=== PATIENT | male | born 1980 | race Caucasian/White ===

== ENCOUNTER 2017-01-15 15:32 | Emergency (ER) ==
[2017-01-15 15:37] VITALS: BP 129/86; TEMP 99.6; BMI 18.3
== END 2017-01-15 17:05 | disposition left against medical advice (07) ==
LOC: ED 15:32
DX: M25.461 Effusion, right knee (principal)

== ENCOUNTER 2018-02-02 15:46 | Emergency (ER) ==
[2018-02-02 15:53] VITALS: BP 138/86; TEMP 98; BMI 18.1
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
--- NOTE | 2018-02-02 16:59 | CT ---
Exam: CT cervical spine without intravenous contrast. Comparison: None available. Reason for exam: Pain. FINDINGS: Multiple dental caries are seen in the partially imaged mandible. No cervical spine fract ure is seen. The vertebral body and intervertebral body disc space heights are well maintained. 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 There is a partially imaged, comminuted fracture of the maxillary sinus, right lateral wall. Air-flu id levels are seen within the right maxillary sinus. Emphysematous disease is seen in the partially imaged lung apices with apical capping and pleural thi ckening. Impression: 1. No acute fracture is seen within the cervical spine. 2. Partially imaged, comminuted fracture of the right maxillary sinus lateral wall. 3. Emphysematous disease with apical consolidation/atelectasis
--- NOTE | 2018-02-02 17:06 | CT ---
EXAM: CT of the maxillofacial region without contrast History: Right facial trauma. Technique: Multiplanar CT images through the maxillofacial region were obtained without the administ ration of IV contrast Findings: There is right periorbital edema and right facial edema extending to involve the anterior neck. Bilateral globes are intact. The visualized intracranial contents demonstrate no grossly acut e findings. Comminuted moderately displaced fractures involving the anterior, posterior and lateral weir of the right maxillary sinus. There is also a fracture extending through the right maxilla medial to the m axillary sinus and extending through the pterygoid plates on the right. There is also a mildly displa mary fracture of the right orbital floor. Mildly displaced fracture of the right lateral orbital wall and mildly displaced fracture of the right zygomatic arch. There is hemorrhage seen within the righ t maxillary sinus. Mastoid air cells are clear. Small frontal scalp hematoma. There is air seen wit hin the soft tissues adjacent to the fracture sites. There is now obvious orbital muscle entrapment. Impression: Multiple right facial fractures as described above consistent with a zygomaticomaxillary complex fracture. The involvement of the pterygoid plates on the right raises concern for a LeFort type injury. Surgical consult recommended.
== END 2018-02-02 18:09 | disposition home or self-care (01) ==
LOC: ED 15:46
DX: S02.81XA Fracture of other specified skull and facial bones, right side, initial encounter for closed fracture (principal); H11.31 Conjunctival hemorrhage, right eye; W22.8XXA Striking against or struck by other objects, initial encounter; F17.210 Nicotine dependence, cigarettes, uncomplicated
CPT/HCPCS: 99283

== ENCOUNTER 2018-09-04 15:12 | Outpatient (CLI) ==
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
== END 2018-09-04 15:13 | disposition home or self-care (01) ==
LOC: RAD 15:12
PROVIDERS: ATTEND Nurse Practitioner Family
DX: G44.329 Chronic post-traumatic headache, not intractable (principal); Z87.828 Personal history of other (healed) physical injury and trauma; Z20.2 Contact with and (suspected) exposure to infections with a predominantly sexual mode of transmission; Z00.00 Encounter for general adult medical examination without abnormal findings
CPT/HCPCS: 36415; 80053; 80061; 84443; 85025; 87389